=== PATIENT | male | born 1970 | race Caucasian/White ===

== ENCOUNTER 2020-01-03 11:13 | Emergency (ER) | payer OTHER ==
[2020-01-03] MEDS ORDERED: predniSONE 20 MG TAB ONE (12:11)
[2020-01-03] MEDS ORDERED: Acetaminophen 500 MG TAB ONE (12:11)
== END 2020-01-03 12:35 | disposition home or self-care (01) ==
LOC: MADERS 11:13
DX: M54.2 Cervicalgia (principal); M25.512 Pain in left shoulder; E11.9 Type 2 diabetes mellitus without complications; Z87.891 Personal history of nicotine dependence; Z79.84 Long term (current) use of oral hypoglycemic drugs
CPT/HCPCS: 99283; J7512

== ENCOUNTER 2024-04-11 12:33 | Emergency (ER) | payer SELFPAY ==
[2024-04-11] MEDS ORDERED: Lactated Ringer's 2,000 ML ONE (13:00)
[2024-04-11 13:19] LABS: ALT (SGPT) 81 U/L (Less than 45); AST (SGOT) 47 U/L (11-34); Albumin 4.3 g/dL (3.1-4.5); Alkaline Phosphatase 98 U/L (40-110); Anion Gap 17 mmol/L (10-20); BUN (Urea Nitrogen) 18 mg/dL (8.4-25.7); Base Excess-Venous -0.4 mmol/L (-2.0 to 3.0); Bicarbonate (HCO3v) 23.2 mmol/L (22.0-28.0); Bilirubin, Total 1.1 mg/dL (0.3-1.2); CO2 Tension (PvCO2) 34.8 mmHg (42.0-51.0); Calc. Creatinine Clearance 0 mL/min (70-130); Calcium 9.4 mg/dL (7.8-10.44); Calcium, Ionized 1.15 mmol/L (1.15-1.33); Carbon Dioxide 18 mmol/L (22-29); Chloride 102 mmol/L (98-107); Chloride 103 mmol/L (98-107); Estimated GFR 76; Globulin 2.6 g/dL (2.4-3.5); Hemoglobin - Calc 16.5 g/dL (14.0-18.0); Magnesium 1.7 mg/dL (1.6-2.6); Potassium 4.7 mmol/L (3.5-5.1); Potassium 4.8 mmol/L (3.5-5.1); Protein, Total 6.9 g/dL (6.0-8.3); Sodium 133 mmol/L (136-145); Sodium 135 mmol/L (138-145); T. Carbon Dioxide 24.3 mmol/L (22.0-28.0); vO2 Saturation-calc 94.3 % (60.0-85.0)
[2024-04-11 13:20] LABS: Troponin I Less than 0.010 ng/mL (< 0.028)
[2024-04-11 13:21] LABS: Band 7 % (5-11); Hematocrit 45.3 % (42.0-52.0); Hemoglobin 15.4 g/dL (14.0-18.0); Lymphocytes 16 % (21-51); MDiff Complete? YES; Mean Corpuscular Hemoglobin 30.5 pg (27.0-31.0); Mean Corpuscular Volume 89.6 fl (78.0-98.0); Mean Platelet Volume 8.4 fL (7.4-10.4); Monocytes 8 % (0-10); Neutrophil 65 % (42-75); Platelet Adequacy Comment Appears Adequate; Platelet Count 207 10x3/uL (130-400); RBC Distribution Width 10.7 % (11.5-14.5); Red Blood Cell (RBC) Count 5.05 mill/uL (4.70-6.10); White Blood Cell (WBC) Count 8.4 10x3/uL (4.8-10.8)
[2024-04-11 13:48] LABS: Glucose 400 mg/dL (70-105)
== END 2024-04-11 14:11 | disposition home or self-care (01) ==
LOC: MADERS 12:33
DX: R00.2 Palpitations (principal); E11.65 Type 2 diabetes mellitus with hyperglycemia; K51.90 Ulcerative colitis, unspecified, without complications; R74.01 Elevation of levels of liver transaminase levels; Z87.891 Personal history of nicotine dependence
CPT/HCPCS: 71046; 80053; 82010; 82330; 82803; 83735; 84443; 84484; 85025; 85379; 93005; 94760; 96360; J7120